=== PATIENT | male | born 1995 | race Caucasian/White ===

== ENCOUNTER 2017-09-04 00:32 | Emergency (ER) | payer BC ==
[~2017-09-04] VITALS: Ht 193 cm; Wt 77.3 kg
[2017-09-04 00:38] VITALS: BP 141/92; TEMP 98.8
[2017-09-04] MEDS ORDERED: VYVANSE50 MG PO (00:41)
[2017-09-04] MEDS ORDERED: NORCO 325 MG-7.1 TAB PO (01:50)
[2017-09-04 02:47] VITALS: PULSE 79
== END 2017-09-04 02:38 | disposition home or self-care (01) ==
LOC: COL.ER 00:32
DX: S69.91XA Unspecified injury of right wrist, hand and finger(s), initial encounter (principal); S62.314A Displaced fracture of base of fourth metacarpal bone, right hand, initial encounter for closed fracture; S62.316A Displaced fracture of base of fifth metacarpal bone, right hand, initial encounter for closed fracture; W22.01XA Walked into wall, initial encounter; Y92.009 Unspecified place in unspecified non-institutional (private) residence as the place of occurrence of the external cause